=== PATIENT | female | born 1990 | race Caucasian/White ===

== ENCOUNTER → 2018-07-10 | Outpatient (CLI) | payer OTHER ==
--- NOTE | 2018-07-10 13:14 | US ---
EXAMINATION TYPE: US extremity nonvasculr ltd LT DATE OF EXAM: 07/10/2018 COMPARISON: NONE CLINICAL HISTORY: M71.22 Synovial cyst of popliteal space [Chester]. Patient has pain and swelling in l ateral left popliteal space x 3 days No Chester cyst noted. 2 areas of hyperechogenicity in left popliteal space. ? Lipomas 1 = 1.1 x 0.8 x 0.8 2 = 0.3 cm IMPRESSION: 1. No evidence of Chester's cyst. 2. Popliteal fossa lipomas.
== END ==
LOC: RADUSWWP 12:23
PROVIDERS: ATTEND Family Medicine
DX: D17.24 Benign lipomatous neoplasm of skin and subcutaneous tissue of left leg (principal)

== ENCOUNTER 2019-01-05 01:15 | Emergency (ER) | payer OTHER ==
[2019-01-05 02:06] LABS: Appearance,Urine Cloudy (Clear); Bacteria,Urine Rare /hpf; Bilirubin,Urine Negative (Negative); Blood,Urine Negative (Negative); Calcium Oxalate Crystals,Urine Rare /hpf; Color,Urine Yellow; Glucose,Urine (UA) Trace (Negative); Hyaline Casts,Urine 12 /lpf (0-2); Ketones,Urine 3+ (Negative); Leukocyte Esterase,Urine Moderate (Negative); Mucus,Urine Many /hpf; Nitrite,Urine Negative (Negative); PH, Urine 5.5 (5.0-8.0); Protein,Urine 1+ (Negative); RBC,Urine 4 /hpf (0-5); Specific Gravity,Urine 1.035 (1.001-1.035); Squamous Epithelial Cell,Urine 6 /hpf (0-4)
[2019-01-05 02:22] LABS: Amphetamine Screen,Urine Not Detected (NotDetected); Barbiturate Screen,Urine Not Detected (NotDetected); Benzodiazepines Screen,Urine Not Detected (NotDetected); Cocaine Screen,Urine Not Detected (NotDetected); Methadone Screen, Urine Not Detected (NotDetected); Opiate Screen,Urine Not Detected (NotDetected); Oxycodone Screen, Urine Not Detected (NotDetected); Phencyclidine Screen,Urine Not Detected (NotDetected); Tricyclic Antidepressant,Urine Not Detected (NotDetected); Urn Cannabinoid Scrn Detected (NotDetected)
[2019-01-05 02:40] LABS: Glucose,Whole Blood 170 mg/dL (75-99)
--- NOTE | 2019-01-05 06:16 | ED ---
Psych HPI - General Chief Complaint: Psychiatric Symptoms Stated Complaint: Mental Health Time Seen by Provider: 01/05/19 01:53 Source: patient, police Mode of arrival: ambulatory - History of Present Illness Initial Comments: Patient is 20-year-old woman here for psychiatric evaluation. The patient admits to having an argument with her significant other. She states that she told him that she was going to harm herself, took a knife and like her self into the bathroom. She states that she did not intend harm herself but she states she was trying to manipulate things. She does contract for safety. Police were called to the location of brought her here for evaluation. MD Complaint: other -: hour(s) Associated Psychiatric Symptoms: depression History of same: No Quality: resolved prior to arrival Improves With: none Worsens With: none Context: significant life stressor Associated Symptoms: denies other symptoms - Related Data Home Medications Medication Instructions Recorded Confirmed Amoxicillin 500 mg PO Q8H 07/17/16 07/17/16 Insulin Glargine [Lantus] 27 unit SQ HS 07/17/16 07/17/16 Insulin Glulisine [Apidra] 12 unit SQ AC-TID 07/17/16 07/17/16 Pnv,Calcium 72/Iron/Folic Acid 1 tab PO DAILY 07/17/16 07/17/16 [ Plus Tablet] Allergies Allergy/AdvReac Type Severity Reaction Status Date / Time sulfamethoxazole Allergy Rash/Hives Verified 01/05/19 01:40 [From Bactrim] trimethoprim [From Bactrim] Allergy Rash/Hives Verified 01/05/19 01:40 Review of Systems ROS Statement: Those systems with pertinent positive or pertinent negative responses have been documented in the HPI. ROS Other: All systems not noted in ROS Statement are negative. Constitutional: Denies: fever Respiratory: Denies: cough, dyspnea Cardiovascular: Denies: chest pain, palpitations Gastrointestinal: Denies: abdominal pain, vomiting Musculoskeletal: Denies: back pain Skin: Denies: rash Neurological: Denies: headache Psychiatric: Reports: anxiety, depression. Denies: auditory hallucinations, visual hallucinations, homicidal thoughts, suicidal thoughts Past Medical History Past Medical History: Asthma, Diabetes Mellitus History of Any Multi-Drug Resistant Organisms: MRSA Date of last positivie culture/infection: 2014 Past Surgical History: Adenoidectomy, Appendectomy, Cholecystectomy, Tonsillectomy Additional Past Surgical History / Comment(s): pilonidial cyst, Past Psychological History: Depression Smoking Status: Current every day smoker Past Alcohol Use History: None Reported Past Drug Use History: None Reported General Exam Limitations: no limitations General appearance: alert, in no apparent distress Head exam: Present: atraumatic, normocephalic Respiratory exam: Present: normal lung sounds bilaterally. Absent: respiratory distress, wheezes, rales, rhonchi, stridor Cardiovascular Exam: Present: regular rate, normal rhythm, normal heart sounds. Absent: systolic murmur, diastolic murmur, rubs, gallop GI/Abdominal exam: Present: soft. Absent: tenderness, guarding, rebound Extremities exam: Present: normal inspection Neurological exam: Present: alert Psychiatric exam: Present: depressed. Absent: agitated, anxious, flat affect, manic, homicidal ideation, suicidal ideation Skin exam: Present: warm, dry, intact, normal color. Absent: rash Course Vital Signs 01/05/19 01/05/19 01:36 07:32 Temperature 99.7 F H 98.4 F Pulse Rate 92 66 Respiratory 18 16 Rate Blood Pressure 112/69 125/74 O2 Sat by Pulse 98 98 Oximetry Medical Decision Making - Medical Decision Making The patient is seen by behavioral health. Again she is sindhu for safety. She does request to have outpatient resources and would like to discuss more chronic issues with them. She does agree to return if anything does worsen. 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 Urine Color Yellow Urine Appearance Cloudy H (Clear) Urine pH 5.5 (5.0-8.0) Ur Specific [place] 1.035 (1.001-1.035) Urine Protein 1+ H (Negative) Urine Glucose (UA) Trace H (Negative) Urine Ketones 3+ H (Negative) Urine Blood Negative (Negative) Urine Nitrite Negative (Negative) Urine Bilirubin Negative (Negative) Urine Urobilinogen 3.0 (<2.0) mg/dL Ur Leukocyte Esterase Moderate H (Negative) Urine RBC 4 (0-5) /hpf Urine WBC 10 H (0-5) /hpf Ur Squamous Epith Cells 6 H (0-4) /hpf Calcium Oxalate Crystal Rare H (None) /hpf Urine Bacteria Rare H (None) /hpf Hyaline Casts 12 H (0-2) /lpf Urine Mucus Many H (None) /hpf Urine HCG, Qual Not Detected (Not Detectd) Urine Opiates Screen Not Detected (NotDetected) Ur Oxycodone Screen Not Detected (NotDetected) Urine Methadone Screen Not Detected (NotDetected) Ur Propoxyphene Screen Not Detected (NotDetected) Ur Barbiturates Screen Not Detected (NotDetected) U Tricyclic Antidepress Not Detected (NotDetected) Ur Phencyclidine Scrn Not Detected (NotDetected) Ur Amphetamines Screen Not Detected (NotDetected) U Methamphetamines Scrn Not Detected (NotDetected) U Benzodiazepines Scrn Not Detected (NotDetected) Urine Cocaine Screen Not Detected (NotDetected) U Marijuana (THC) Screen Detected H (NotDetected) Disposition Clinical Impression: Adjustment reaction Disposition: HOME SELF-CARE Condition: Good Instructions (If sedation given, give patient instructions): Mood Disorders (ED) Is patient prescribed a controlled substance at d/c from ED?: No Referrals: Sahil Shannon DO [Primary Care Provider] - 1-2 days
[2019-01-05 07:32] VITALS: BP 125/74; PULSE 66; RESP 16; TEMP 98.4
== END 2019-01-05 08:00 | disposition home or self-care (01) ==
LOC: EC 01:15
DX: F43.20 Adjustment disorder, unspecified (principal); F32.9 Major depressive disorder, single episode, unspecified; E11.9 Type 2 diabetes mellitus without complications; F17.200 Nicotine dependence, unspecified, uncomplicated; Z86.14 Personal history of Methicillin resistant Staphylococcus aureus infection; Z79.4 Long term (current) use of insulin; Z88.1 Allergy status to other antibiotic agents; Z88.2 Allergy status to sulfonamides
CPT/HCPCS: 36415; 80306; 81001; 81025; 82075; 99285

== ENCOUNTER → 2022-10-23 | Outpatient (CLI) | payer OTHER ==
--- NOTE | 2022-10-23 22:37 | US ---
EXAMINATION TYPE: US OB limited DATE OF EXAM: 10/23/2022 COMPARISON: NONE CLINICAL HISTORY: unable to detect fhts at /4. Family unable to detect heart tones. Pt states she has been cramping EXAM PERFORMED: Transabdominal (TA) GESTATIONAL AGE / DATING Physician Established: (19 weeks/4 days) EDC: 03/15/23 No growth performed on today?s study per ordering physician SURVEY heart tone only per physician PRESENTATION: Breech LIE: Longitudinal HEART RATE: Unable to detect Unable to detect heart tone. No color flow visualized. Low KODI seen. IMPRESSION: There is evidence of intrauterine demise. The biparietal diameter is approximately 2.5 cm. There is reduced amniotic fluid.
--- NOTE | 2022-10-23 23:22 | P.HPOB ---
History of Present Illness H&P Date: 10/23/22 Chief Complaint: 19 weeks of , abdominal pain This is a at 19 weeks of that presents to labor and delivery with complaints of abdominal pain. Patient states she sees a rasper machine operator at [facility]. Patient states she is an insulin-dependent diabetic and does work with simplex operator. She believes her last hemoglobin A1c was in the 90s prior to finding out she was with this child. Patient states that she was not diabetic with her first 2 pregnancies. Patient states she was seen on October 11 and was told that she had a low amniotic fluid index and had plans for follow-up with maternal- medicine in [place]. Patient denies vaginal bleeding. 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 2 term delivery 3 34 week delivery 4 current Review of Systems Constitutional: Denies chills, Denies fatigue, Denies fever Ears, nose, mouth and throat: Denies headache Cardiovascular: Denies leg edema Gastrointestinal: Denies nausea, Denies vomiting Genitourinary: Reports Past Medical History Past Medical History: Asthma, Diabetes Mellitus History of Any Multi-Drug Resistant Organisms: MRSA Date of last positivie culture/infection: 2014 Past Surgical History: Adenoidectomy, Appendectomy, Cholecystectomy, Tonsillectomy Additional Past Surgical History / Comment(s): pilonidial cyst, Past Psychological History: Depression Past Alcohol Use History: None Reported Past Drug Use History: None Reported Medications and Allergies Home Medications Medication Instructions Recorded Confirmed Type Pnv,Calcium 72/Iron/Folic Acid 1 tab PO DAILY 07/17/16 10/23/22 History [ Plus Tablet] Insulin Aspart (For Pump) [NovoLOG 0.01 unit SQ-PUMP CONTINUOUS 10/23/22 10/23/22 History (For Pump)] Allergies Allergy/AdvReac Type Severity Reaction Status Date / Time sulfamethoxazole Allergy Rash/Hives Verified 10/23/22 21:53 [From Bactrim] trimethoprim [From Bactrim] Allergy Rash/Hives Verified 10/23/22 21:53 Exam Osteopathic Statement: *. No significant issues noted on an osteopathic structural exam other than those noted in the History and Physical/Consult. Intake and Output 10/23/22 10/23/22 10/24/22 14:59 22:59 06:59 Other: Weight 92.533 kg Targeted physical exam is performed on this date in general this is a well- nourished well-developed patient tearful in nature. Breathing is noted to nonlabored, heart has a regular rate and rhythm, abdomen is soft and nontender, vital signs are stable patient is afebrile. Assessment and Plan (1) 19 weeks gestation of Current Visit: Yes Status: Acute Code(s): Z3A.19 - 19 WEEKS GESTATION OF SNOMED Code(s): 55006139 (2) demise Current Visit: Yes Status: Acute Code(s): RWL3551 - SNOMED Code(s): 804850331 (3) Diabetes Current Visit: Yes Status: Acute Code(s): E11.9 - TYPE 2 DIABETES MELLITUS WITHOUT COMPLICATIONS SNOMED Code(s): 46478958 Plan: 32-year-old at approximately 19 weeks of that presents with complaints of abdominal pain. An ultrasound no heart tones were appreciated. Patient is counseled on need for vaginal delivery, patient has a long-standing relationship with her rasper machine operator and will follow-up with them for further management.
== END ==
LOC: FBPOP 21:34
PROVIDERS: ATTEND Obstetrics & Gynecology Obstetrics
DX: O36.4XX1 Maternal care for intrauterine death, fetus 1 (principal); O99.332 Smoking (tobacco) complicating pregnancy, second trimester; E11.9 Type 2 diabetes mellitus without complications; J45.909 Unspecified asthma, uncomplicated; Z79.4 Long term (current) use of insulin; F17.200 Nicotine dependence, unspecified, uncomplicated; Z3A.39 39 weeks gestation of pregnancy; Z88.2 Allergy status to sulfonamides
CPT/HCPCS: 76815

== ENCOUNTER 2022-10-24 04:34 | Observation (INO) | payer OTHER ==
[2022-10-24] MEDS ORDERED: LIDOCAINE 0.5% (PF) 5 MG/ML (50 ML SDV) SQ PRN (05:14)
[2022-10-24] MEDS ORDERED: OXYTOCIN 30 UNITS/500 ML NS 30 UNIT in SALINE 1 500ML.BAG IV SCH (05:15)
[2022-10-24] MEDS ORDERED: LACTATED RINGERS 1,000 ML IV SCH (05:15)
[2022-10-24 06:32] VITALS: RESP 16
--- NOTE | 2022-10-24 07:38 | P.HPOB ---
History of Present Illness H&P Date: 10/24/22 Chief Complaint: interuterine demise, 19 weeks 32-year-old that presented to labor and delivery via EMS after delivery of 19 week fetus at home. Patient was seen earlier in the evening where diagnosis of intrauterine demise was made on ultrasound. Patient receives care at [facility]. Patient had a long-standing history with her last inserter therefore was discharged home. Patient was deemed stable for discharge, vital signs were stable and she denied pain at the time of discharge. No bleeding was appreciated while she was seen in triage. Patient states she went home and began noticing some pain then around midnight the pain became more regular. Patient states she felt she needed to use the bathroom and subsequently delivered. Patient states her pain is currently well controlled. She is resting comfortably. Bleeding is stable. She denies current concerns. patient is a known insulin-dependent diabetic for which she uses an insulin pump. 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 Review of Systems Constitutional: Denies chills, Denies fatigue, Denies fever Ears, nose, mouth and throat: Denies headache Cardiovascular: Denies leg edema Respiratory: Denies dyspnea Gastrointestinal: Denies constipation, Denies diarrhea, Denies nausea, Denies vomiting Past Medical History Past Medical History: Asthma, Diabetes Mellitus History of Any Multi-Drug Resistant Organisms: MRSA Date of last positivie culture/infection: 2014 MDRO Source:: unknown Past Surgical History: Adenoidectomy, Appendectomy, Cholecystectomy, Tonsillectomy Additional Past Surgical History / Comment(s): pilonidial cyst, Past Anesthesia/Blood Transfusion Reactions: No Reported Reaction Past Psychological History: Depression Smoking Status: Current every day smoker Past Alcohol Use History: None Reported Past Drug Use History: None Reported - Past Family History Mother Family Medical History: Diabetes Mellitus, Hypertension Medications and Allergies Home Medications Medication Instructions Recorded Confirmed Type Pnv,Calcium 72/Iron/Folic Acid 1 tab PO DAILY 07/17/16 10/24/22 History [ Plus Tablet] Insulin Aspart (For Pump) [NovoLOG 0.01 unit SQ-PUMP CONTINUOUS 10/23/22 10/24/22 History (For Pump)] Aspirin 81 mg PO DAILY 10/24/22 10/24/22 History Cholecalciferol (Vitamin D3) 4,000 unit PO DAILY 10/24/22 10/24/22 History [Vitamin D3 (50 Mcg = 2000 Iu) Chew Tab] Allergies Allergy/AdvReac Type Severity Reaction Status Date / Time sulfamethoxazole Allergy Rash/Hives Verified 10/23/22 21:53 [From Bactrim] trimethoprim [From Bactrim] Allergy Rash/Hives Verified 10/23/22 21:53 Exam Osteopathic Statement: *. No significant issues noted on an osteopathic structural exam other than those noted in the History and Physical/Consult. Vital Signs Temp Pulse Resp BP Pulse Ox 10/24/22 06:17 76 16 115/82 100 10/24/22 06:02 86 16 106/73 99 10/24/22 05:47 82 16 108/67 99 10/24/22 05:32 81 16 109/70 99 10/24/22 05:17 96.9 F L 76 16 108/67 99 10/24/22 04:52 97.0 F L 77 16 103/62 99 Intake and Output 10/23/22 10/24/22 10/24/22 22:59 06:59 14:59 Output Total 0 Balance 0 Output: Output, Quantitative 0 Blood Loss Other: Weight 92.533 kg targeted physical exam is performed and state in general this well nourished well-developed female in no acute distress, patient is noted to be resting comfortably in bed. Breathing is appreciated to be nonlabored, heart has regular rhythm, abdomen is soft and nontender, minimal bleeding is noted on her samir pad. Assessment and Plan (1) 19 weeks gestation of Current Visit: No Status: Acute Code(s): Z3A.19 - 19 WEEKS GESTATION OF SNOMED Code(s): 60866425 (2) Diabetes Current Visit: No Status: Acute Code(s): E11.9 - TYPE 2 DIABETES MELLITUS WITHOUT COMPLICATIONS SNOMED Code(s): 54654116 (3) demise Current Visit: No Status: Acute Code(s): OXH2560 - SNOMED Code(s): 533027585 Plan: 32-year-old status post vaginal delivery of a 19 week intrauterine demise. Fetus delivered en caul, with placenta intact. Bleeding is noted to be minimal. Pain is well-controlled. We'll monitor this morning and anticipate discharge home this afternoon.
[2022-10-24 07:41] LABS: Basophils % (A) 0 %; Eosinophils # (A) 0.1 k/uL (0-0.7); Eosinophils % (A) 1 %; HCT 38.5 % (34.0-46.0); HGB 13.1 gm/dL (11.4-16.0); Lymphocytes # (A) 2.2 k/uL (1.0-4.8); Lymphocytes % (A) 21 %; MCH 30.3 pg (25.0-35.0); MCHC 34.1 g/dL (31.0-37.0); MCV 88.7 fL (80.0-100.0); Mean Platelet Volume 8.8; Monocytes # (A) 0.5 k/uL (0-1.0); Monocytes % (A) 5 %; Neutrophils # (A) 7.5 k/uL (1.3-7.7); Neutrophils % (A) 71 %; Platelet Count 210 k/uL (150-450); RBC 4.34 m/uL (3.80-5.40); WBC 10.6 k/uL (3.8-10.6)
[2022-10-24] MEDS ORDERED: Rhogam IMMUNE GLOBULIN 1,500 UNIT/1 ML IM ONE (10:34)
--- NOTE | 2022-10-24 10:37 | P.DS ---
Providers Date of admission: 10/24/22 04:34 Expected date of discharge: 10/24/22 Attending physician: Eugenie Ruiz Primary care physician: Stated None - Discharge Diagnosis(es) (1) 19 weeks gestation of Current Visit: No Status: Acute (2) Diabetes Current Visit: No Status: Acute (3) demise Current Visit: No Status: Acute Hospital Course: 32-year-old that presented earlier this morning with delivery of 19 week demise at home. Patient delivered en caul placenta attached. Patient's bleeding has been minimal sense admission. Vital signs continued to be stable, hemoglobin stable patient does wish discharge home Patient was receiving care with an outside facility [facility]. Known insulin-dependent diabetic followed by endocrinology. Patient states her A1c prior to was 9. Patient Condition at Discharge: Good Plan - Discharge Summary New Discharge Prescriptions: No Action Pnv,Calcium 72/Iron/Folic Acid [ Plus Tablet] 1 tab PO DAILY Cholecalciferol (Vitamin D3) [Vitamin D3 (50 Mcg = 2000 Iu) Chew Tab] 4,000 unit PO DAILY Insulin Aspart (For Pump) [NovoLOG (For Pump)] 0.01 unit SQ-PUMP CONTINUOUS Aspirin 81 mg PO DAILY Discharge Medication List Pnv,Calcium 72/Iron/Folic Acid [ Plus Tablet] 1 tab PO DAILY 07/17/16 [History] Insulin Aspart (For Pump) [NovoLOG (For Pump)] 0.01 unit SQ-PUMP CONTINUOUS 10/23/22 [History] Aspirin 81 mg PO DAILY 10/24/22 [History] Cholecalciferol (Vitamin D3) [Vitamin D3 (50 Mcg = 2000 Iu) Chew Tab] 4,000 unit PO DAILY 10/24/22 [History] Follow up Appointment(s)/Referral(s): Eugenie Ruiz DO [Doctor of Osteopathic Medicine] - 2 Weeks Activity/Diet/Wound Care/Special Instructions: No tub baths or intercourse until 4-6 weeks . Patient is to follow up with myself or her established [employer]. [id number] ibuprofen as needed for pain. Patient is encouraged to follow up with endocrinology regarding her diabetes mellitus Discharge Disposition: HOME SELF-CARE
[2022-10-24 10:38] VITALS: BP 105/62; PULSE 75; TEMP 98.2
== END 2022-10-24 13:48 | disposition home or self-care (01) ==
LOC: 4FBP 04:34 → INTOOBSV 04:34 → UNDODISIN 13:48
PROVIDERS: ADMIT Obstetrics & Gynecology Obstetrics; ATTEND Obstetrics & Gynecology Obstetrics
DX: O02.1 Missed abortion (principal); O24.012 Pre-existing type 1 diabetes mellitus, in pregnancy, second trimester; O99.52 Diseases of the respiratory system complicating childbirth; O99.344 Other mental disorders complicating childbirth; O99.334 Smoking (tobacco) complicating childbirth; J45.909 Unspecified asthma, uncomplicated; F32.A Depression, unspecified; F17.200 Nicotine dependence, unspecified, uncomplicated; Z3A.19 19 weeks gestation of pregnancy; Z96.41 Presence of insulin pump (external) (internal); Z79.4 Long term (current) use of insulin; Z90.49 Acquired absence of other specified parts of digestive tract; Z83.3 Family history of diabetes mellitus; Z82.49 Family history of ischemic heart disease and other diseases of the circulatory system; Z79.82 Long term (current) use of aspirin; Z79.899 Other long term (current) drug therapy; Z88.2 Allergy status to sulfonamides; Z23 Encounter for immunization
CPT/HCPCS: 36430; 90471; 86900; 86901; 88305; 85025; 86850; 88300; G0378; G0379; J2790; J2590